=== PATIENT | female | born 1990 | race African-American/Black ===

== ENCOUNTER 2022-04-23 21:16 | Emergency (ER) | payer MEDICAID, OTHER ==
[~2022-04-23] VITALS: Ht 157.5 cm; Wt 113.0 kg
[2022-04-23 21:16] VITALS: BP 138/63
[2022-04-23] MEDS ORDERED: IPRATROPIUM BROM 0.5 MG/2.5ML INH SOL NEB ONE (21:45)
[2022-04-23] MEDS ORDERED: ALBUTEROL SULF 2.5 MG/0.5ML(0.5%) NEB SOLN NEB ONE (21:45)
[2022-04-23] MEDS ORDERED: predniSONE 20 MG TAB PO ONE (21:45)
[2022-04-24] MEDS ORDERED: AZIT250T9 PO (00:12)
[2022-04-24] MEDS ORDERED: ALBUAER3 IN (00:12)
== END 2022-04-24 00:51 | disposition home or self-care (01) ==
LOC: ER 21:19
DX: J45.909 Unspecified asthma, uncomplicated (principal)
CPT/HCPCS: 71045; 93005; 94640; 99283; J7512; J7644